=== PATIENT | male | born 1965 | race Caucasian/White ===

== ENCOUNTER 2024-08-22 13:21 | Emergency (ER) | payer MEDICAID ==
[~2024-08-22] VITALS: Ht 165.1 cm; Wt 81.8 kg
[~2024-08-22 13:21] MED LIST: AMLO-258 PO; ASPI-1450 PO; ATOR40TA71 PO; CLOP75TA32 PO; LOSA-382 PO
[2024-08-22 13:58] VITALS: TEMP 98.7
[2024-08-22] MEDS: ACETAMINOPHEN 325 MG TABLET PO ONE (15:51)
[2024-08-22] MEDS: DEXAMETHASONE 4 MG TABLET PO ONE (15:51)
[2024-08-22] MEDS: KETOROLAC TROMETHAMINE 30 MG/ML VIAL IM ONE (15:51)
[2024-08-22 16:18] LABS: COVID AG,FIA SOURCE NASAL SWAB
[2024-08-22 16:37] LABS: INFLUENZA TYPE A NEGATIVE FOR TYPE A (NEGATIVE); INFLUENZA TYPE B NEGATIVE FOR TYPE B (NEGATIVE); SARS-COV2 (COVID) ANTIGEN,FIA Negative (Negative)
[2024-08-22 18:12] VITALS: BP 146/81; PULSE 75; RESP 18; O2SAT 98
== END 2024-08-22 18:39 | disposition home or self-care (01) ==
LOC: EMS 13:22
DX: J02.8 Acute pharyngitis due to other specified organisms (principal); B97.89 Other viral agents as the cause of diseases classified elsewhere; I10 Essential (primary) hypertension; Z79.899 Other long term (current) drug therapy; Z20.822 Contact with and (suspected) exposure to COVID-19
CPT/HCPCS: 99283; 87426; 87804; 96372; J1885; J8540